=== PATIENT | male | born 1955 | race Caucasian/White ===

== ENCOUNTER 2021-10-05 23:01 | Observation (INO) ==
[2021-10-06 00:36] LABS: INR 1.1; PT Patient Result 11.7 SECS (10.5-12.0); Partial Thromboplastin Time 29.1 SECS (23.8-32.1)
[2021-10-06 00:49] LABS: Basophils % 0.6 % (0.0-0.8); Eosinophils # 0.2 10*3/uL (0.0-0.87); Eosinophils % 2.8 % (0.00-10.9); Hematocrit 36.6 VOL% (42.0-52.0); Immature Granulocytes % 0.9 %; Immature Granulocytes Absolute 0.06 #; Lymphocytes # 1.4 10*3/uL (1.4-4.0); Lymphocytes % 20.8 % (21.2-54.2); Mean Corpuscular HGB Conc 32.8 GM/DL (32-36); Mean Corpuscular Volume 87.1 FL (87-102); Mean Platelet Volume 9.7 FL (9.6-12.0); Neutrophils % 66.9 % (38.7-73.9); Platelet Count 263 T/CUMM (130-400); Red Cell Distribution Width 12.4 % (9.3-17.3); White Blood Count 6.5 T/CUMM (4-12)
[2021-10-06 01:10] LABS: Calcium 8.4 MG/DL (8.5-10.1); Potassium 4.1 MMOL/L (3.5-5.1)
[2021-10-06 01:53] LABS: Osmolality,Calculated 285.3 MOS/KG (273-304)
[2021-10-06] MEDS ORDERED: ONDANSETRON 4 MG/2 ML VIAL IV PRN (02:17)
[2021-10-06] MEDS ORDERED: ACETAMINOPHEN 325 MG TABLET PO PRN (02:17)
[2021-10-06] MEDS ORDERED: GLUCAGON 1 MG VIAL IM PRN (02:17)
[2021-10-06] MEDS ORDERED: ENOXAPARIN 80 MG/0.8 ML SYRINGE SUBCUT STA (02:33)
[2021-10-06] MEDS ORDERED: DEXTROSE 10% 250 ML BAG IV PRN (02:33)
[2021-10-06 03:52] LABS: Risk Ratio 3.83; Thyroid Stimulating Hormone 3.19 uIU/ml (0.358-3.74)
[2021-10-06 05:58] LABS: Albumin 3.4 G/DL (3.4-5.0); Bilirubin,Direct 0.26 MG/DL (0.0-0.20); Bilirubin,Indirect 0.5 MG/DL (0.0-1.0); Bilirubin,Total 0.8 MG/DL (0.20-1.00); Total Protein 6.8 G/DL (6.4-8.2)
[2021-10-06] MEDS: INSULIN REGULAR 100 UNIT/ML SUBCUT SCH ×4 (07:57→22:15)
[2021-10-06] MEDS: PANTOPRAZOLE 40 MG TABLET PO SCH (09:36)
[2021-10-06] MEDS: APIXABAN 5 MG TABLET PO SCH ×2 (09:36→22:00)
[2021-10-06] MEDS: METOPROLOL TARTRATE 25 MG TABLET PO SCH ×2 (09:36→22:00)
[2021-10-06] MEDS: GABAPENTIN 100 MG CAPSULE PO SCH ×2 (15:07→22:00)
[2021-10-06] MEDS ORDERED: CETIRIZINE 10 MG TABLET PO SCH (21:00)
[2021-10-06] MEDS ORDERED: MIRTAZAPINE 15 MG TABLET PO SCH (21:00)
[2021-10-06] MEDS: levETIRAcetam 500 MG TABLET PO SCH (21:59)
[2021-10-06] MEDS: FLUTICASONE 50 MCG NASAL SPRAY 16 GM BOTTLE BOTH NARES SCH (22:00)
[2021-10-07 04:14] LABS: Basophils % 0.4 % (0.0-0.8); Eosinophils # 0.2 10*3/uL (0.0-0.87); Eosinophils % 2.7 % (0.00-10.9); Hematocrit 33.2 VOL% (42.0-52.0); Hemoglobin 10.9 GM/DL (14.0-18.0); Immature Granulocytes % 0.7 %; Immature Granulocytes Absolute 0.04 #; Lymphocytes # 1.3 10*3/uL (1.4-4.0); Lymphocytes % 23.1 % (21.2-54.2); Mean Corpuscular HGB Conc 32.8 GM/DL (32-36); Mean Corpuscular Volume 86.7 FL (87-102); Mean Platelet Volume 9.5 FL (9.6-12.0); Neutrophils % 64.1 % (38.7-73.9); Platelet Count 248 T/CUMM (130-400); Red Blood Count 3.83 MC/CUMM (3.8-5.5); Red Cell Distribution Width 12.7 % (9.3-17.3); White Blood Count 5.5 T/CUMM (4-12)
[2021-10-07 04:35] LABS: Albumin 2.3 G/DL (3.4-5.0); Bilirubin,Total 0.4 MG/DL (0.20-1.00); Calcium 8.3 MG/DL (8.5-10.1); Osmolality,Calculated 283.1 MOS/KG (273-304); Potassium 3.9 MMOL/L (3.5-5.1); Total Protein 6.3 G/DL (6.4-8.2)
[2021-10-07] MEDS: INSULIN REGULAR 100 UNIT/ML SUBCUT SCH (07:21)
[2021-10-07] MEDS: APIXABAN 5 MG TABLET PO SCH (08:45)
[2021-10-07] MEDS: METOPROLOL TARTRATE 25 MG TABLET PO SCH (08:45)
[2021-10-07] MEDS: PANTOPRAZOLE 40 MG TABLET PO SCH (08:45)
[2021-10-07] MEDS: GABAPENTIN 100 MG CAPSULE PO SCH (08:45)
[2021-10-07] MEDS: levETIRAcetam 500 MG TABLET PO SCH (08:45)
[2021-10-07] MEDS ORDERED: FUROSEMIDE 40 MG TABLET PO SCH (09:00)
[2021-10-07] MEDS ORDERED: FERROUS SULFATE 325 MG TABLET PO SCH (09:00)
[2021-10-07] MEDS ORDERED: TAMSULOSIN 0.4 MG CAPSULE PO SCH (09:00)
[2021-10-07] MEDS ORDERED: LACTULOSE 20 GM/30 ML UDCUP PO SCH (09:00)
[2021-10-07] MEDS ORDERED: ASPIRIN EC 325 MG TABLET PO SCH (09:00)
[2021-10-07] MEDS ORDERED: MULTIVITAMIN (CENTRUM) TABLET PO SCH (09:00)
[2021-10-07] MEDS: FLUTICASONE 50 MCG NASAL SPRAY 16 GM BOTTLE BOTH NARES SCH (09:20)
[2021-10-07 10:41] VITALS: BP 105/81
== END 2021-10-07 12:01 | disposition home or self-care (01) ==
LOC: EDBD → EDUNIT# → N.EDINP 23:01 → N.ED 23:01 → N.TELES 10-07 10:03
PROVIDERS: ADMIT Hospitalist; ATTEND Hospitalist